=== PATIENT | female | born 1975 | race Asian ===

== ENCOUNTER 2021-04-10 09:11 | Outpatient (REF) | payer BC, SELFPAY ==
[2021-04-10 14:45] LABS: COVID-19 Test Negative (Negative)
== END 2021-04-10 09:12 | disposition home or self-care (01) ==
LOC: HO.LAB 09:11
PROVIDERS: Visit Provider Internal Medicine
DX: Z20.822 Contact with and (suspected) exposure to COVID-19 (principal)
CPT/HCPCS: 36415; 87635; C9803

== ENCOUNTER 2021-12-23 08:17 | Outpatient (REF) | payer BC, SELFPAY ==
[2021-12-23 09:05] LABS: Influenza A PCR NEGATIVE (Negative); Influenza B PCR NEGATIVE (Negative); Resp Syncy Virus RNA Qual PCR NEGATIVE (Negative); SARS COV2 PCR INHOUSE NEGATIVE (Negative)
== END 2021-12-23 08:18 | disposition home or self-care (01) ==
LOC: HO.LAB 08:17
PROVIDERS: Visit Provider Internal Medicine
DX: Z20.822 Contact with and (suspected) exposure to COVID-19 (principal)
CPT/HCPCS: 0241U; C9803

== ENCOUNTER 2023-10-30 08:25 | Outpatient (REF) | payer BC, SELFPAY ==
--- NOTE | ~2023-10-30 | CT_ITS ---
EXAMINATION: CT ABDOMEN AND PELVIS WITH CONTRAST CLINICAL INFORMATION: Left lower quadrant pain. COMPARISON: None available. TECHNIQUE: Multidetector volumetric images were obtained from the superior aspect of the left liver through the pubic symphysis following administration 85 mL of Omnipaque 350 intravenous contrast. Sagittal and coronal reformatted images were obtained on the technologist's workstation. Oral contrast: No This CT examination was performed using dose optimization techniques as appropriate, variously including the following: *Automated exposure control *Adjustment of mA and/or kV according to patient size (this includes techniques or standardized protocols for targeted exams where dose is matched to indication/reason for exam; i.e. extremities or head) *Use of iterative reconstruction technique DLP: 413 mGy-cm FINDINGS: LUNG BASES: The visualized lung bases are unremarkable. LIVER, GALLBLADDER, AND BILIARY TREE: The liver is normal in size, shape, and attenuation. No focal hepatic lesion or biliary ductal dilatation is present. The gallbladder is contracted. PANCREAS: Unremarkable. SPLEEN: Unremarkable. ADRENAL GLANDS: Unremarkable. KIDNEYS AND URETERS: The kidneys are symmetric in size and enhancement. No hydronephrosis. No perinephric stranding. BLADDER: Decompressed. GASTROINTESTINAL TRACT: Small and large bowel loops are of normal caliber. No small bowel obstruction. Appendix is within normal limits. Fecal impaction in the rectosigmoid colon. ABDOMINAL WALL: No significant hernia is appreciated. LYMPH NODES: No bulky lymphadenopathy. VASCULAR: Normal caliber abdominal aorta. PELVIC VISCERA: The uterus is anteverted but retroflexed. The uterus is enlarged extending superiorly to the level of the umbilicus. There is an anterior intramural fibroid with central necrosis measuring 12.7 x 9.1 x 12.2 cm. The endometrial stripe is displaced posteriorly. OSSEOUS STRUCTURES: No destructive bone lesions. CT/CT abdomen pelvis w IV con IMPRESSION: Enlarged fibroid uterus with dominant centrally necrotic fibroid measuring 12.7 x 9.1 x 12.2 cm likely exhibiting degeneration. This may be responsible for patient's pain.
[2023-10-30 09:39] LABS: MANUAL DIFF FLAG NO
[2023-10-30 10:14] LABS: Basophils Absolute Auto 0.1 X10*3/uL (0.0-0.2); Basophils Percent Auto 0.4 % (0-2); Eosinophils Absolute Auto 0.1 X10*3/uL (0.0-0.4); Eosinophils Percent Auto 0.6 % (0-4); Hematocrit 32.2 % (37.0-47.0); Imm Gran Abs Auto 0.21 X10*3/uL (0.00-0.03); Imm Gran Pct Auto 1.2 % (0.0-0.4); Lymphocytes Absolute Auto 1.3 X10*3/uL (1.2-4.9); Lymphocytes Percent Auto 7.8 % (20-40); Mean Corpuscular HGB Conc 31.1 g/dl (31.0-35.0); Mean Corpuscular Hemoglobin 23.9 pg (27.0-33.0); Mean Platelet Volume 9.1 fL (9.4-12.3); Monocytes Absolute Auto 0.8 X10*3/uL (0.1-1.2); Monocytes Percent Auto 4.8 % (2-11); Neutrophils Absolute Auto 14.6 x10*3/uL (2.0-8.3); Neutrophils Percent Auto 85.2 % (45-73); Platelet Count 629 X10*3/uL (160-400); Red Blood Count 4.18 X10*6/uL (4.20-5.50); Red Cell Distribution Width 15.8 % (11.0-16.0); White Blood Count 17.1 X10*3/uL (4.8-10.8)
[2023-10-30 10:19] LABS: Appearance Urine Cloudy; Color Urine Dark Yellow; Glucose Urine UA >=1000 mg/dL (Negative); Leukocyte Esterase Urine Negative (Negative); Nitrite Urine Negative (Negative); PH 5.5 (5.0-9.0); Specific Gravity - Urine >= 1.030 (1.005-1.025); UMIC TRIGGER UACC YES; Urine Blood Trace (Negative); Urine Ketones 40 mg/dL (Negative); Urine Protein 30 (1+) mg/dL (Neg-Trace)
[2023-10-30 10:20] LABS: Estimated Average Glucose 200 mg/dL; Hemoglobin A1c % 8.6 % (<6.0)
[2023-10-30 10:22] LABS: Bacteria Urine None Seen (None Seen); Hyaline Casts Urine 0-2 /LPF (0-2); WBC Urine 0-5 /HPF (0-5)
[2023-10-30 10:41] LABS: Alanine Aminotransferase 19 U/L (0-31); Albumin Level 3.5 g/dL (3.5-5.0); Alkaline Phosphatase 174 U/L (39-117); Anion Gap 16 (12-20); Aspartate Amino Transferase 17 U/L (5-31); Bilirubin Total 0.6 mg/dL (0.0-1.0); Blood Urea Nitrogen 10 mg/dL (9-16); C Reactive Protein 27.14 mg/dL (< or = 0.50); Calcium 9.4 mg/dL (8.4-10.2); Carbon Dioxide 28 mmol/L (22-29); Chloride 93 mmol/L (96-108); Estimated Glomerular Filt Rate > 60; Glucose Random 309 mg/dL (60-115); Potassium 3.8 mmol/L (3.3-5.1); Sodium 133 mmol/L (135-145)
[2023-10-30 10:58] LABS: Ferritin 173 ng/mL (10-250); HBS Num1 > 1000.00 mIU/mL (0-7.99); HBsAGNum1 0.31 S/CO (0.00-0.99); Hepatitis A Antibody IgM 0.36 Index (0-0.79); Hepatitis B Core Antibody Nonreactive (Nonreactive); Hepatitis B Surface Antigen Negative (Negative); TSH reflex Free T4 0.06 uIU/mL (0.32-4.0); ~Hepatitis A Antibody IgM Nonreactive (Nonreactive); ~Hepatitis B Surface Antibody REACTIVE (Nonreactive); ~Hepatitis C Antibody Nonreactive (Nonreactive)
[2023-10-30 11:46] LABS: Free T4 (Free Thyroxine) 1.52 ng/dL (0.71-1.85)
[2023-10-30 12:43] LABS: Folate 8.4 ng/mL (> or = 4.0); Vitamin B12 194 pg/mL (200-900)
[2023-10-30] MEDS: iohexoL 350 MG/ML 75 ML INFUS..BTL 85 ML IV (13:21)
[2023-10-30] MEDS: Barium Sulfate Oral (Vanilla) 450 ML ORAL.SUSP 900 ML PO (13:21)
== END 2023-10-30 08:26 | disposition home or self-care (01) ==
LOC: HO.LAB 08:25
PROVIDERS: PCP Family Medicine; Visit Provider Internal Medicine Gastroenterology
DX: R10.32 Left lower quadrant pain (principal); E46 Unspecified protein-calorie malnutrition; R00.0 Tachycardia, unspecified; K75.81 Nonalcoholic steatohepatitis (NASH)
CPT/HCPCS: 36415; 74177; 80053; 81001; 81003; 82607; 82728; 82746; 83036; 84439; 84443; 85025; 86140; 86704; 86706; 86709; 86803; 87340

== ENCOUNTER 2023-10-30 08:25 | Outpatient (AMB) | payer BC, SELFPAY ==
--- NOTE | 2023-10-30 08:26 | MHC.OFFVIS ---
Vital Signs 10/30/23 08:33 Height 5 ft 3 in Weight 141 lb 15.643 oz BMI 25.1 BP 124/60 Blood Pressure Location Lt brachial Position Sitting Pulse 120 H Intake Visit Reasons: Abdominal pain Intake Note: Romy presents in the office as a new patient for abdominal pains. CC: She states that she was seen in the urgent care. She states that she is not having any irregular bowel movements. LLQ is where the pains are. Enterprise Systems Administrator Required: No Allergies shellfish derived Allergy (Mild, Verified 10/30/23 08:33) Unknown HPI HPI Abdominal pain: Details: HPI 48 yr old f here for assessment for abdominal pain She had LLQ pain 5-6/10 1 week ago - now gone--no radiation she was given augmentin in urgent care and she thinks it maybe helped she had loss of appetite, now back again slowly low grade fever had similar attack about 1 yr ago HR noted to be high at times no nausea or vomiting now she denies diarrhea or constipation, no blood in stool sugar levels have been high recently, PCP gave her januvia ROS: Constitutional : No Weight loss, No Fever, No Chills ENT/Mouth : No sore throat, No Rhinorrhea Eyes: No Swelling, No Redness Cardiovascular : No Chest Pain, No SOB, No Edema Respiratory : No Cough, No Sputum, No Wheezing Gastrointestinal : see HPI Genitourinary : NO Dysuria, No Urinary Frequency, No Hematuria, No Urgency Musculoskeletal : No joint pain, No Myalgias, No Joint Swelling Skin : No Skin Lesions, No rash Neuro : No Weakness, No Numbness, No Dizziness, No Headache Psych : No Anxiety/Panic, No Depression Heme/Lymph: No Bruising, No Lymphadenopathy Endocrine : No Polyuria, No Polydipsia All other systems reviewed and are negative. Medical History DM HTN Surgical History none Family History father has DM and cardiac issues Social History non smoker, no alcohol, no drugs, researcher -health care data EXAM: GENERAL: The patient is well developed and nontoxic. VITAL SIGNS:see workflow HEENT: Nonicteric sclerae, PERRLA, EOMI. Oropharynx clear. Moist mucous membranes. Conjunctivae appear well perfused. No thyroid mass. CHEST: Chest wall is nontender. HEART: Regular rate and rhythm without murmurs. LUNGS: Clear to auscultation bilaterally. ABDOMEN: Soft, positive bowel sounds, tender LLQ, no organomegaly.no flank tenderness SKIN: No rash, no excessive bruising, petechiae, or purpura. NEUROLOGIC: Cranial nerves II-XII intact without motor/sensory deficit. Psych: normal affect A/P: 1/ LLQ pain, ddx: diverticulitis, ovarian cysts, uterine path, pathology, less likely colon ca and hormonal d/o like cushings, thyroid PLAN: 1/ CT scan with PO and IV --depending on this colonoscopy, stop metfromin day before CT 2/ check labs as below, urine c/s, and a1c, TSH Physical Exam Vital Signs: Last Vital Signs Pulse 120 H 10/30/23 08:33 BP 124/60 10/30/23 08:33 BMI result Body Mass Index 25.1 Assessment & Plan Assessment & Plan (1) LLQ pain: Code(s): R10.32 - Left lower quadrant pain Category: Medical Plan: see above (2) Malnutrition: Code(s): E46 - Unspecified protein-calorie malnutrition Category: Medical Plan: see above (3) LLQ pain: Code(s): R10.32 - Left lower quadrant pain Category: Medical Plan: see above (4) Tachycardia: Code(s): R00.0 - Tachycardia, unspecified Category: Medical Plan: see above Orders: Orders CT abdomen pelvis w IV con Today R10.32 - Left lower quadrant pain Hepatitis A,B,C Profile Today E46 - Unspecified protein-calorie malnutrition, R10.32 - Left lower quadrant pain Ferritin Today E46 - Unspecified protein-calorie malnutrition, R10.32 - Left lower quadrant pain Vitamin B12 and Folate Today E46 - Unspecified protein-calorie malnutrition, R10.32 - Left lower quadrant pain Hemoglobin A1c Today R00.0 - Tachycardia, unspecified, R10.32 - Left lower quadrant pain Complete Blood Count Auto Diff Today E46 - Unspecified protein-calorie malnutrition, R10.32 - Left lower quadrant pain Comprehensive Met. Panel Today E46 - Unspecified protein-calorie malnutrition, K75.81 - Nonalcoholic steatohepatitis (MONREAL), R10.32 - Left lower quadrant pain C Reactive Protein Today E46 - Unspecified protein-calorie malnutrition, R10.32 - Left lower quadrant pain UA CC w/rflx Micro + Cult Today E46 - Unspecified protein-calorie malnutrition, R10.32 - Left lower quadrant pain, R30.0 - Dysuria TSH reflex Free T4 Today E46 - Unspecified protein-calorie malnutrition, R00.0 - Tachycardia, unspecified, R10.32 - Left lower quadrant pain Coding Level of Care Code New Pt Level 4 (72988) Diagnoses LLQ pain R10.32 Malnutrition E46 Tachycardia R00.0
[2023-10-30 08:33] VITALS: BP 124/60; PULSE 120; BMI 25.1
== END 2023-10-30 09:17 | disposition home or self-care (01) ==
PROVIDERS: PCP Family Medicine; Visit Provider Internal Medicine Gastroenterology
DX: R10.32 Left lower quadrant pain (principal); E46 Unspecified protein-calorie malnutrition; R00.0 Tachycardia, unspecified
CPT/HCPCS: 99204

== ENCOUNTER 2023-11-03 13:30 | Outpatient (REF) | payer BC, SELFPAY ==
--- NOTE | ~2023-11-03 | MR_ITS ---
EXAMINATION: MR PELVIS WITHOUT AND WITH CONTRAST CLINICAL INFORMATION: 48-year-old female presents for evaluation of uterine leiomyoma. COMPARISON: CT of abdomen/pelvis from 10/30/2023. TECHNIQUE: MR imaging of the pelvis is performed using standard sequences on a high-field magnet without and with intravenous administration of 6.5 mL Gadavist. FINDINGS: UTERUS AND CERVIX: The large anteflexed, anteverted uterus measures 17 x 10 x 14.5 cm ([id number] x AP x transverse dimension). A 10.5 x 8 x 12.5 cm mass of heterogeneous signal intensity involving the anterior body and fundus has a lobulated border. The mass has high, intermediate and low T2 signal intensity. There is solid, contrast-enhancing tissue around regions of intrinsic T1 signal shortening and lack of enhancement from hemorrhagic necrosis. This likely represents a degenerating intramural leiomyoma, but there can be overlap in appearance of a degenerating leiomyoma with a leiomyosarcoma. There are no old comparison exams that would indicate rate of growth of this lesion. There is no evidence of infiltration of the mass beyond the serosal surface of the uterus or into the cervix or vagina. This uterine mass, due to its large size, has endometrial contact but it does not protrude into the endometrial cavity. This has features of a FIGO type 3 leiomyoma. The junctional zone of the myometrium has normal thickness; no evidence of uterine adenomyosis. The endometrium measures up to 0.6 cm AP. No focal endometrial lesion. The cervix, vagina and perineal soft tissues are unremarkable. ADNEXA: The ovaries are normal. No evidence of hemorrhagic ovarian cyst or endometriosis. FREE FLUID: Trace amount of free fluid is present within the posterior cul-de-sac. LYMPHOVASCULAR: The visualized abdominal aorta is normal in caliber. The iliac arteries and veins are patent; no venous thrombosis. URINARY BLADDER: Urinary bladder is empty and grossly normal. The urethra is normal. GASTROINTESTINAL: No dilated bowel loops. The sigmoid colon and rectum are unremarkable. ABDOMINAL WALL: Small fat-containing umbilical hernia is noted. No inguinal hernia. MUSCULOSKELETAL: No suspicious osseous lesions. The visualized bones have normal marrow signal intensity. No soft tissue mass.. MR/MR pelvis wo/w con IMPRESSION: * The 10.5 x 8 x 12.5 cm heterogeneous lobulated intramural mass involving the anterior uterine body and fundus is consistent with a leiomyoma that has nonenhancing regions from moderate hemorrhagic necrosis. * No evidence of adnexal mass, abnormal pelvic fluid collection or lymphadenopathy.
[2023-11-03] MEDS: gadobutroL 7.5 ML VIAL IVPUSH (14:27)
== END 2023-11-03 13:31 | disposition home or self-care (01) ==
LOC: HO.MRI 13:30
PROVIDERS: PCP Family Medicine; Visit Provider Obstetrics & Gynecology
DX: D25.9 Leiomyoma of uterus, unspecified (principal)
CPT/HCPCS: 72197; A9585

== ENCOUNTER 2023-11-04 11:46 | Outpatient (AMB) | payer BC, SELFPAY ==
[2023-11-04 11:40] VITALS: BMI 25.2
--- NOTE | 2023-11-04 11:40 | MHC.OFFVIS ---
Vital Signs 11/04/23 11:40 Height 5 ft 3 in Weight 142 lb BMI 25.2 Intake Visit Reasons: Myoma Sr. Director Required: No Information Interpreted: non-clinical & clinical Gliding Pilot Instructor: Gliding Pilot Instructor Present (Padmini QUEZADA) Accompanied by: Self / Same As Patient Allergies shellfish derived Allergy (Mild, Verified 11/04/23 11:41) Unknown Is last menstrual period known: Yes Last menstrual period: 10/09/23 HPI Comments Details: Presenting referred from GI for large myoma seen on CT scan, the patient recently had an episode of diverticulitis was treated with Levaquin Flagyl and has improved since then pain has resolved completely. The patient gives a history of heavy menstrual cycle associated with passage of blood clots of few months' duration. 10/30/2023 CT scan of abdomen and pelvis (pelvic viscera portion of the CT) showed the following: PELVIC VISCERA: The uterus is anteverted but retroflexed. The uterus is enlarged extending superiorly to the level of the umbilicus. There is an anterior intramural fibroid with central necrosis measuring 12.7 x 9.1 x 12.2 cm. The endometrial stripe is displaced posteriorly. 11/02 pelvic MRI showed the following: UTERUS AND CERVIX: The large anteflexed, anteverted uterus measures 17 x 10 x 14.5 cm ([id number]-[id number] x AP x transverse dimension). A 10.5 x 8 x 12.5 cm mass of heterogeneous signal intensity involving the anterior body and fundus has a lobulated border. The mass has high, intermediate and low T2 signal intensity. There is solid, contrast-enhancing tissue around regions of intrinsic T1 signal shortening and lack of enhancement from hemorrhagic necrosis. This likely represents a degenerating intramural leiomyoma, but there can be overlap in appearance of a degenerating leiomyoma with a leiomyosarcoma. There are no old comparison exams that would indicate rate of growth of this lesion. There is no evidence of infiltration of the mass beyond the serosal surface of the uterus or into the cervix or vagina. This uterine mass, due to its large size, has endometrial contact but it does not protrude into the endometrial cavity. This has features of a FIGO type 3 leiomyoma. The junctional zone of the myometrium has normal thickness; no evidence of uterine adenomyosis. The endometrium measures up to 0.6 cm AP. No focal endometrial lesion. The cervix, vagina and perineal soft tissues are unremarkable. ADNEXA: The ovaries are normal. No evidence of hemorrhagic ovarian cyst or endometriosis. FREE FLUID: Trace amount of free fluid is present within the posterior cul-de-sac. LYMPHOVASCULAR: The visualized abdominal aorta is normal in caliber. The iliac arteries and veins are patent; no venous thrombosis. URINARY BLADDER: Urinary bladder is empty and grossly normal. The urethra is normal. GASTROINTESTINAL: No dilated bowel loops. The sigmoid colon and rectum are unremarkable. ABDOMINAL WALL: Small fat-containing umbilical hernia is noted. No inguinal hernia. MUSCULOSKELETAL: No suspicious osseous lesions. The visualized bones have normal marrow signal intensity. No soft tissue mass Last co testing was negative 2 years ago, the patient was told that her pelvic exam within normal [facility] Medical History Diabetes Family History Father Diabetes HTN (hypertension) Mother HTN (hypertension) Brother HTN (hypertension) Social History Household Members: Spouse and Children Housing: House Alcohol intake: never Patient Tobacco Use Status: Never used Tobacco Current occupational status: employed Sexual orientation: Straight/Heterosexual Gender identity: Female Female Reproductive History Menstrual Date of last menstrual period: 10/09/23 control method: none Total pregnancies: 4 Full term: 2 Number of Living Children: 2 Review of Systems Const All systems reviewed & are unremarkable except as noted in HPI and below Physical Exam Vital Signs: BMI result Body Mass Index 25.2 GI Palpation (GI): Other GI palpation findings present (Uterine fundus 1-2 cm above the umbilicus) General: Yes no CVA tenderness External Female Exam: normal external appearance and normal appearance of the urethra Speculum Exam - Vagina: normal appearance of the vagina, normal palpation, no lesions and no masses Speculum Exam - Cervix: normal appearance of the cervix, normal palpation, no lesions, no masses and nontender Bimanual exam- vagina & uterus: normal bimanual exam, normal palpation, normal palpation, uterine shape normal, No Cervical tenderness present, non-tender and enlarged (Twenty-two week size uterine) Bimanual Exam- Adnexa, other: normal adnexae Back/Spine/Pelvis Back: no CVA tenderness Office Procedures Endometrial Biopsy Details: The patient was counseled regarding the indication and benefits of endometrial sampling to rule out endometrial pathology including not limited to endometrial hyperplasia or endometrial cancer and others; The alternatives (Either do nothing vs. hysteroscopy D&C) & the risks were discussed with the patient including but not limited: pain, uterine perforation, bleeding, infection, possible injury to bladder, bowel, ureter, possible need for blood transfusion with all its possible risks. The patient verbalized understanding all questions answered and signed consent. Urine test done in the office was negative The patient was placed into the dorsal lithotomy position; a speculum was inserted in the vagina. Using aseptic technique for the procedure, the cervix was cleansed with Betadine. The anterior lip of the cervix was grasped with a single tooth tenaculum. The uterus was sounded to 7 cm with a 4 mm Pipelle was used. Tissues samples were obtained and placed in formalin, in a patient labeled container and sent to the pathology department. At the end of the procedure, there was minimal bleeding noted The patient tolerated the procedure well and was discharged in good condition with the following instructions: Nothing in the vagina until the bleeding stops. No sex until the bleeding stops, to call if any of the following occurs: fever (>100.4), flu-like symptoms, abdominal pain, heavy bleeding, four smelling vaginal discharge. The patient was instructed to schedule a Follow up appointment in 2 weeks to discuss pathology results of the biopsy and treatment options. This note was generated with a voice recognition program. Some errors may have been overlooked during the review of this note. Sometimes these errors may affect the content or meaning of a given sentence. [id number] Biopsy Results AMB Test Urine AMB Test Urine Negative Last Edit by Padmini Pierre CMA on 11/04/23 11:47 Assessment & Plan Assessment & Plan (1) Uterine myoma: Comment: Large with central necrosis by CT and MRI Code(s): D25.9 - Leiomyoma of uterus, unspecified Category: Medical Plan: Discussed with the patient the finding on the pelvic exam, 22 weeks gestation size myoma and the findings on CT scan and MRI, large myoma; since the patient did not have any imaging for a baseline myoma measurement , history of no previous symptoms except last year started to have heavier menstrual cycles and normal pelvic exam at her PCP 2 years ago, the speed of growth could not be evaluated but is suspicious for a rapid growth;in addition discussed with the patient the findings of central necrosis on CT scan and MRI , the differential diagnosis of either degenerated fibroids with the possibility of leiomyosarcoma although the risk is low. Will refer to Gyne Onc for further management, appointment schedule with Dr. Escamilla on 11/10/2023 at a.m. (2) Abnormal uterine bleeding: Code(s): N93.9 - Abnormal uterine and vaginal bleeding, unspecified Category: Medical Plan: Discussed with the patient the different causes of abnormal bleeding including thyroid disorders, uterine and ovarian pathology, endometrial hyperplasia, carcinoma and other potential causes. Discussed with the patient the work up including CBC (to r/o anemia), TSH, pelvic Ultrasound (CT and MRI done alternatively), endometrial biopsy to r/o endometrial pathology. All questions answered and the patient verbalized understanding. (3) Umbilical hernia: Code(s): K42.9 - Umbilical hernia without obstruction or gangrene Category: Medical Plan: Discussed with the patient the finding on MRI umbilical hernia refer to general surgery for further management Orders: Orders AMB Endometrial Biopsy Today D25.9 - Leiomyoma of uterus, unspecified, N93.9 - Abnormal uterine and vaginal bleeding, unspecified AMB HCG Urine Test Today Z32.02 - Encounter for test, result negative Surgical Today D25.9 - Leiomyoma of uterus, unspecified, N93.9 - Abnormal uterine and vaginal bleeding, unspecified Coding Level of Care Code New Pt Level 3 (32320) Diagnoses Uterine myoma D25.9 Abnormal uterine bleeding N93.9 Umbilical hernia K42.9 CPT Codes Endometrial Biopsy - CPT: 32769-Hromalnllun Biopsy ([id number])
== END 2023-11-04 15:46 | disposition home or self-care (01) ==
LOC: HO.HWS 11:46
PROVIDERS: PCP Family Medicine; Visit Provider Obstetrics & Gynecology
DX: N93.9 Abnormal uterine and vaginal bleeding, unspecified (principal); D25.9 Leiomyoma of uterus, unspecified; K42.9 Umbilical hernia without obstruction or gangrene; Z32.02 Encounter for pregnancy test, result negative
CPT/HCPCS: 58100; 99203

== ENCOUNTER 2023-11-04 11:46 | Outpatient (REF) | payer BC, SELFPAY | END 2023-11-04 11:47 | disposition home or self-care (01) | LOC: HO.LNP 11:46 | PROVIDERS: PCP Family Medicine; Visit Provider Obstetrics & Gynecology | DX: N93.9 Abnormal uterine and vaginal bleeding, unspecified (principal); D25.9 Leiomyoma of uterus, unspecified; K42.9 Umbilical hernia without obstruction or gangrene | CPT/HCPCS: 58100; 81025; 88305 ==